=== PATIENT | female | born 1980 | race Hispanic/Latino ===

== ENCOUNTER → 2022-11-17 | Outpatient (CLI) | payer MEDICAID ==
[~2022-11-17] MED LIST: AMLO-257 PO; CHOL50004 PO; DULO20CA18 PO; HYDR200T4 PO; TRAM50TA4 PO
== END | disposition home or self-care (01) ==
LOC: SHCH 08:30
PROVIDERS: ATTEND Internal Medicine Cardiovascular Disease
DX: R94.31 Abnormal electrocardiogram [ECG] [EKG] (principal)
CPT/HCPCS: 93306

== ENCOUNTER → 2025-04-21 | Outpatient (CLI) | payer MEDICAID ==
[~2025-04-21] MED LIST changes: -HYDR200T4 PO; +HYDR200T75 PO; +IOHEXOL-350 75 ML VIAL IV ONE
--- NOTE | 2025-04-21 12:42 | HMCIMG ---
CT NECK SOFT TISSUE W/WO CONTR HISTORY: Precordial pain, left-sided neck lump COMPARISON: None TECHNIQUE: Multiple sequential axial images of the soft tissue neck were obtained. Patient was given 75 cc of Omnipaque through intravenous route. FINDINGS: Visualized portion of brain parenchyma within the posterior fossa is within normal limits. Parapharyngeal fat planes are preserved bilaterally. Parotid glands and submandibular glands are grossly within normal limits. There are normal size cervical lymph nodes. The airway is patent. Visualized portion of the lung apices are unremarkable. There are mild degenerative changes of the cervical spine spondylosis. IMPRESSION: 1. No definite CT evidence of a mass lesion is seen. CT was performed with one or more following dose reduction techniques: automated exposure control, adjustment of the mA and kv according to patient's size, or use of a iterative reconstruction technique.
== END | disposition home or self-care (01) ==
LOC: RAH 11:14
PROVIDERS: ATTEND Family Medicine
DX: R22.1 Localized swelling, mass and lump, neck (principal); R07.2 Precordial pain; M47.812 Spondylosis without myelopathy or radiculopathy, cervical region
CPT/HCPCS: 70492; Q9967

== ENCOUNTER 2025-09-26 20:11 | Emergency (ER) | payer MEDICAID ==
[~2025-09-26] VITALS: Ht 152.4 cm; Wt 77.1 kg
[~2025-09-26 20:11] MED LIST changes: -IOHEXOL-350 75 ML VIAL IV ONE
--- NOTE | 2025-09-26 20:15 | NUR ---
COVID, FLU AND STREP COLLECTED AND SENT
[2025-09-26 20:44] LABS: SARS-CoV-2, RNA, NAAT POSITIVE SARS CoV-2 (NEGATIVE)
[2025-09-26 20:47] LABS: INFLUENZA TYPE A Negative For Type A (NEGATIVE); INFLUENZA TYPE B Negative For Type B (NEGATIVE)
[2025-09-26 20:50] LABS: RAPID GROUP A STREP positive (NEGATIVE)
--- NOTE | 2025-09-26 20:50 | ERN ---
ED Note History of Present Illness Stated Complaint: FEVER,NASAL CONGESTION, Chief Complaint: Flu Symptoms Time Seen by MD: 20:16 Dictation: This is a 45-year-old female who presented to the emergency room with a complaints of flu-like symptoms for the past 1-1/2 weeks. She missed her PCP appointment on 09/21. Symptoms persisted she came in for evaluation she reports a sore throat generalized body aches and headaches. She has nasal congestion and cough. At home she indicated that she had fevers up to 102. She has been taking Motrin and Tylenol for symptomatic relief. No history of any mucopurulent sputum or hemoptysis. No dysuria. No nausea vomitings diarrhea. For the systemic lupus erythematosus, patient is on hydroxychloroquine daily. She denied being on any biologic agents. She apparently took a 10 mg of prednisone yesterday as she also had joint pains on the right side mostly knee and hip. She reports sore throat mostly pain in the right side of the throat radiating to the ear. No Temperature 98 pulse 105 respirations 20 blood pressure 125/100 with a pulse oximetry of 100% on room air Patient has chronic medical problems include systemic lupus erythematosus, history of crest syndrome, depression and liver disease but details are all unclear at this time Allergies: Coded Allergies: ibuprofen (Unverified Allergy, Mild, 08/30/17) Home Meds Active Scripts Azithromycin (Azithromycin) 250 Mg Tablet, 1 TAB PO AD for 5 Days, #6 TAB 0 Refills 2 the first day followed by 1 for days 2-5 Prov:ANA MARIA LINARES MD 09/26/25 Prednisone (Prednisone) 50 Mg Tablet, 50 MG PO DAILY for 5 Days, #5 TAB 0 Refills Prov:ANA MARIA LINARES MD 09/26/25 Reported Medications Duloxetine HCl (Duloxetine HCl) 20 Mg Capsule.dr, 20 MG PO DAILY, CAP 08/30/17 Amlodipine Besylate (Amlodipine Besylate) 5 Mg Tablet, 5 MG PO DAILY, TAB 08/30/17 Cholecalciferol (Vitamin D3) 5,000 Unit Capsule, 5000 UNIT PO DAILY, CAP 08/30/17 Hydroxychloroquine Sulfate (Hydroxychloroquine Sulfate) 200 Mg Tablet, 200 MG PO BID, TAB 08/30/17 Tramadol Hcl (Tramadol HCl) 50 Mg Tablet, 100 MG PO TIDP PRN for PAIN LEVEL 1 TO 5, TAB 08/30/17 Past Medical History Past Medical History: Depression, Liver Disease, Other Additional Past Medical Hx: LUPUS, OSTEOARTHIRITIS HISTORY OF CREST SYNDROME Surgical History: Cholecystectomy, Other, Surgical History Other: HERNIA Family History: Negative RN Note Reviewed/Agreed w/PFSH: Yes Review of System Dictation Constitutional: Positive for fever,chills, generalized body aches, sore throat Eyes: Negative for injury, pain,redness, and discharge ENT: Negative for injury,pain or swelling Cardiovascular: Negative for chest pain, palpitations, and edema Respiratory: Negative for shortness of breath, and wheezing, positive for cough Abdomen/GI: Negative for abdominal pain, nausea, vomiting, diarrhea, and constipation Back: Negative for injury and pain : Negative for injury, bleeding and discharge MS/Extremity: Negative for injury and deformity Skin: Negative for rash, and discoloration Neuro: Negative for headache, weakness, numbness, tingling, and seizure Psych: Negative for suicide ideation, homicidal ideation, and hallucinations Initial Vital Sign VS Vital Signs Date Time Temp Pulse Resp B/P (MAP) Pulse Ox O2 Delivery O2 Flow Rate FiO2 09/26/25 20:14 98.1 105 20 125/100 100 Room Air 09/26/25 20:20 0 21 Physical Exam Dictation General: awake, alert, NAD Head/Face: Normocephalic, atraumatic Eyes: PERRL, EOMI, vision at baseline ENT: oral cavity clear, TMs clear, no signs of infection Neck: Trachea midline, supple, no nuchal rigidity Cardiovascular: RRR, normal S1/S2, No MRGs, no JVD Respiratory: CTAB, no respiratory distress, No rales or wheezes Abdomen: Soft, non-tender, non-distended, normal bowel sounds, no guarding or rebound. Skin: Warm, dry, normal turgor, no rash MS/Extremity: Pulses equal, no cyanosis, neurovascular intact, FROM Neuro: COAx4, GCS 15, strength 5/5, CN 2-12 intact, normal cerebellar exam, normal gait, Psych: Normal behavior, mood, and affect normal Extremities-trace edema without any palpable cords, Homans sign is negative Results (Laboratory/Radiology) Laboratory/Radiology Laboratory Tests Test 09/26/25 20:16 09/26/25 21:07 09/26/25 21:55 Influenza Type A Antigen Negative For Type A Influenza Type B Antigen Negative For Type B SARS-CoV-2, RNA, NAAT POSITIVE SARS CoV-2 Group A Streptococcus Rapid positive (NEGATIVE) *A White Blood Count 6.0 K/uL (4.8-10.8) Red Blood Count 4.41 MIL/uL (4.00-5.50) Hemoglobin 13.1 g/dL (12.0-16.0) Hematocrit 39.0 % (36-48) Mean Corpuscular Volume 88.4 fL (79-99) Mean Corpuscular Hemoglobin 29.7 pg (27.0-33.0) Mean Corpuscular Hemoglobin Concent 33.6 g/dL (32.0-36.0) Red Cell Distribution Width 13.2 % (11.0-15.5) Platelet Count 233 K/uL (130-400) Mean Platelet Volume 10.8 fL (7.5-10.5) H Immature Granulocyte % (Auto) 0.3 % (0-1) Neutrophils (%) (Auto) 72.9 % (40.0-77.0) Lymphocytes (%) (Auto) 13.4 % (21.0-51.0) L Monocytes (%) (Auto) 9.9 % (3.0-13.0) Eosinophils (%) (Auto) 3.0 % (0.0-8.0) Basophils (%) (Auto) 0.5 % (0.0-5.0) Neutrophils # (Auto) 4.3 K/uL (1.8-7.7) Lymphocytes # (Auto) 0.8 K/uL (1.0-4.8) L Monocytes # (Auto) 0.6 K/uL (0.1-1.0) Eosinophils # (Auto) 0.18 K/uL (0.00-0.70) Basophils # (Auto) 0.03 K/uL (0.00-0.20) Absolute Immature Granulocyte (auto 0.02 K/uL (0-1) Nucleated Red Blood Cells 0.0 % (0.0-0.19) Sodium Level 136 mmol/L (136-145) Potassium Level 3.2 mmol/L (3.5-5.1) L Chloride Level 98 mmol/L (101-111) L Carbon Dioxide Level 29 mmol/L (21-32) Blood Urea Nitrogen 9 mg/dL (7-18) Creatinine 0.7 mg/dL (0.5-1.0) Glomerular Filtration Rate Calc 108 mL/min (>90) Random Glucose 105 mg/dL (70-105) Total Calcium 9.1 mg/dL (8.5-10.1) Human Chorionic Gonadotropin, Quant 0 mIU/mL (0-5) Urine Color YELLOW (YELLOW) Urine Appearance CLEAR (CLEAR) Urine pH 7.0 (5.0-8.0) Urine Specific [place] 1.022 (1.001-1.031) Urine Protein NEGATIVE mg/dL (NEGATIVE) Urine Glucose (UA) NEGATIVE mg/dL (NEGATIVE) Urine Ketones NEGATIVE mg/dL (NEGATIVE) Urine Occult Blood NEGATIVE (NEGATIVE) Urine Nitrate NEGATIVE (NEGATIVE) Urine Bilirubin NEGATIVE mg/dL (NEGATIVE) Urine Urobilinogen 12 mg/dL (0.2-1.0) H Urine Leukocyte Esterase 250 Mis/uL (NEGATIVE) H Urine RBC 0-1 /HPF (0-1) Urine WBC 6-10 /HPF (0-1) H Urine Squamous Epithelial Cells Few /HPF (0-2) Urine Bacteria Rare /HPF (None Seen) Labs Reviewed?: Yes ED Course ED Course Orders Procedure Category Date Status Time Covid Rna Naat LAB 09/26/25 Complete 20:14 Influenza Type A & B, LAB 09/26/25 Complete Rapid 20:14 Rapid (Group A Strep) LAB 09/26/25 Complete 20:14 Cbc With Differential LAB 09/26/25 Complete 20:46 Basic Metabolic Panel LAB 09/26/25 Complete 20:46 Hcg,Quantitative LAB 09/26/25 Complete 20:46 Urinalysis Profile LAB 09/26/25 Complete 20:46 Chest 1vw RAD 09/26/25 Resulted 20:46 Lactated Ringers PHA 09/26/25 Complete 1000ml (Lactated 21:30 Methylprednisolone PHA 09/26/25 Complete Succ 125mg (Solu-Medr 21:30 Azithromycin PHA 09/26/25 Complete (Zithromax) 22:00 Potassium Bicarb/Cit PHA 09/26/25 Complete Ac 25meq (K-Lyte Ta 22:30 Culture Urine SRUTHI 09/26/25 In Process 22:14 Current Medications Medications (Trade) Dose Ordered Sig/Dede Route PRN Reason Start Time Stop Time Status Last Admin Dose Admin Azithromycin (Zithromax) 500 mg ONCE ONCE PO 09/26/25 22:00 09/26/25 22:01 DC 09/26/25 22:03 Lactated Ringer's 1,000 ml @ 0 mls/hr ONCE ONCE IV 09/26/25 21:30 09/26/25 21:27 DC 09/26/25 21:18 Methylprednisolone Sodium Succinate (Solu-medROL 125MG) 80 mg ONCE ONCE IVP 09/26/25 21:30 09/26/25 21:27 DC 09/26/25 21:18 Potassium Bicarbonate (K-Lyte Tablet Eff 25 Meq Tablet.eff) 25 meq ONCE ONCE PO 09/26/25 22:30 09/26/25 22:31 DC 09/26/25 22:39 Vital Signs Date Time Temp Pulse Resp B/P (MAP) Pulse Ox O2 Delivery O2 Flow Rate FiO2 09/26/25 21:49 98.1 92 20 122/92 100 Room Air* 0 21 09/26/25 20:20 98.1 105 20 125/100 100 Room Air* 0 21 09/26/25 20:14 98.1 105 20 125/100 100 Room Air Medical Decision Making MDM Differential diagnosis: Influenza, COVID, RSV, streptococcal pharyngitis, otitis media, acute viral syndrome This is a 45-year-old female who presented to the emergency room with a complaints of flu-like symptoms for the past 1-1/2 weeks. She missed her PCP appointment on 09/21. Symptoms persisted she came in for evaluation she reports a sore throat generalized body aches and headaches. She has nasal congestion and cough. At home she indicated that she had fevers up to 102. She has been taking Motrin and Tylenol for symptomatic relief. No history of any mucopurulent sputum or hemoptysis. No dysuria. No nausea vomitings diarrhea. For the systemic lupus erythematosus, patient is on hydroxychloroquine daily. She denied being on any biologic agents. She apparently took a 10 mg of prednisone yesterday as she also had joint pains on the right side mostly knee and hip. She reports sore throat mostly pain in the right side of the throat radiating to the ear. No Temperature 98 pulse 105 respirations 20 blood pressure 125/100 with a pulse oximetry of 100% on room air Patient has chronic medical problems include systemic lupus erythematosus, history of crest syndrome, depression and liver disease but details are all unclear at this time 10:00 p.m. labs reviewed CBC is with a normal limits BNP 7 shows a potassium of 3.2 otherwise negative. test is unremarkable. 10:10 p.m. chest x-ray no acute focal infiltrate seen. Nasopharyngeal swabs- positive for COVID and group a strep I updated the patient on labs and findings of chest x-ray and labs and she has more than 1-1/2 weeks into the symptoms. She has no hypoxia at this time. So I recommended treatment with steroid and antibiotic. Offered the Paxlovid but at this time it may not be beneficial. Patient opted not to take Paxlovid at this time. She will be discharged to home on outpatient antibiotic therapy and she will follow up with her primary care physician Rationale: Tests considered and ordered secondary to shared decision making include: Previous outside records reviewed: Old ER visits. Risk of complication and/or morbidity or mortality of patient management: None Medications-Per medication reconciliation Need for hospitalization: Patient does not meet criteria for hospitalization. Need for emergency major/minor surgery: No There are no social concerns with this patient. Prescription drug management Prescriptions will include symptomatic care Patient's prior external medical records from other ER visits were reviewed by me as indicated. Prior testing and results from previous visits were reviewed. Prior tests were taken into account with medical decision making and resource utilization, independent historian/historians were used to obtain complete medical history. I independently interpreted the test that were performed, results were reviewed by me and considered findings on radiology if ordered. Medical management and examination interpretation discussions were had by me with other qualified healthcare professionals as indicated for the patient's care. Problem List Problem List: (1) Pharyngitis due to group A beta hemolytic Streptococci (2) COVID-19 virus infection (3) History of systemic lupus erythematosus (SLE) DX & DISP Disposition: Discharge Departure Impression: Primary Impression: COVID-19 virus infection Additional Impressions: Pharyngitis due to group A beta hemolytic Streptococci, History of systemic lupus erythematosus (SLE) Condition: Stable Scripts Azithromycin (Azithromycin) 250 Mg Tablet 1 TAB PO AD for 5 Days, #6 TAB 0 Refills 2 the first day followed by 1 for days 2-5 Prov: THOPU,ANA MARIA R MD 09/26/25 Prednisone (Prednisone) 50 Mg Tablet 50 MG PO DAILY for 5 Days, #5 TAB 0 Refills Prov: ANA MARIA LINARES MD 09/26/25 Additional Instructions: Patient and the caregiver have been informed of all the diagnostic tests and the imaging conducted during the today's visit to the emergency room and has verbalized understanding of the results I have personally reviewed and interpreted all diagnostic exams performed here in the ER today as well as the vital signs documented by the nursing staff. The patient is now being discharged to home and should follow up with the primary care physician or the specialist as directed by the ER staff. Referrals: BASIL RUSSELL MD (PCP) ANA MARIA LINARES MD Sep 26, 2025 20:50
[2025-09-26 21:13] LABS: IMMATURE GRANULOCYTE ABSOLUTE 0.02 K/uL (0-1); NUCLEATED RED BLOOD CELLS 0.0 % (0.0-0.19); PLATELET COUNT (AUTO) 233 K/uL (130-400); RED BLOOD CELL COUNT(AUTO) 4.41 MIL/uL (4.00-5.50); RED CELL DISTRIBUTION WIDTH 13.2 % (11.0-15.5); WHITE BLOOD COUNT (AUTO) 6.0 K/uL (4.8-10.8)
[2025-09-26] MEDS: LACTATED RINGERS 1000ML 1,000 ML IV ONE (21:18)
[2025-09-26 21:31] LABS: CREATININE 0.7 mg/dL (0.5-1.0); GLOMERULAR FILTR. RATE CALC 108.0 mL/min (>90); GLUCOSE,RANDOM 105.0 mg/dL (70-105); SODIUM SERUM 136.0 mmol/L (136-145); UREA NITROGEN, BLOOD 9.0 mg/dL (7-18)
[2025-09-26 21:41] LABS: HCG,QUANTITATIVE 0.0 mIU/mL (0-5)
[2025-09-26 21:49] VITALS: BP 122/92; PULSE 92; RESP 20; TEMP 98.1; O2SAT 100
[2025-09-26] MEDS ORDERED: PRED50TA2 PO (21:57)
[2025-09-26] MEDS ORDERED: AZIT250T9 PO (21:57)
[2025-09-26] MEDS: AZITHROMYCIN 250 MG TABLET PO ONE (22:03)
[2025-09-26 22:09] LABS: APPEARANCE,URINE CLEAR (CLEAR); GLUCOSE, URINE (UA) NEGATIVE (NEGATIVE); LEUKOCYTE ESTERASE ,URINE 250 Leu/uL (NEGATIVE); NITRATE,URINE NEGATIVE (NEGATIVE); OCCULT BLOOD,URINE NEGATIVE (NEGATIVE)
[2025-09-26 22:13] LABS: ADD UA MICROSCOPIC YES
[2025-09-26 22:15] LABS: SQUAMOUS EPITHELIAL CELL,UR Few /HPF (0-2)
--- NOTE | 2025-09-26 22:37 | HMCIMG ---
EXAM: CR Chest, 1 view CLINICAL HISTORY: Strep + COVID + COMPARISON: None provided. FINDINGS: The lungs show no infiltrates or other acute findings. No pleural effusion or pneumothorax. The cardiomediastinal silhouette is within normal limits. No acute osseous abnormality. IMPRESSION: No acute cardiopulmonary process is evident. /[place]
== END 2025-09-26 21:27 | disposition home or self-care (01) ==
LOC: EDH 20:11
DX: U07.1 COVID-19 (principal); M32.9 Systemic lupus erythematosus, unspecified; J02.0 Streptococcal pharyngitis; B95.0 Streptococcus, group A, as the cause of diseases classified elsewhere; Z79.52 Long term (current) use of systemic steroids; Z88.6 Allergy status to analgesic agent; Z90.49 Acquired absence of other specified parts of digestive tract
CPT/HCPCS: 99284; 96374; 71045; 87635; 80048; 84702; 85025; 87086; 87880; 87804 ×2; 81001; 36415; J2919; J7120